=== PATIENT | male | born 1955 | race Caucasian/White ===

== ENCOUNTER 2018-02-15 10:57 | Emergency (ER) | payer OTHER, MEDICAID ==
[~2018-02-15] VITALS: Ht 175.3 cm; Wt 90.7 kg
[2018-02-15 11:09] VITALS: BP 133/81
[2018-02-15] MEDS ORDERED: ACETAMINOPHEN 325 MG TAB PO ONE (11:30)
== END 2018-02-15 12:41 | disposition home or self-care (01) ==
LOC: ER 10:57
DX: S70.12XA Contusion of left thigh, initial encounter (principal); S50.12XA Contusion of left forearm, initial encounter; S00.01XA Abrasion of scalp, initial encounter; I10 Essential (primary) hypertension; W07.XXXA Fall from chair, initial encounter; Y93.89 Activity, other specified; Y92.89 Other specified places as the place of occurrence of the external cause; Y99.8 Other external cause status
CPT/HCPCS: 73502; 93005